=== PATIENT | female | born 1990 | race Caucasian/White ===

== ENCOUNTER 2017-04-05 15:54 | Inpatient (IN) | payer BC, OTHER ==
[~2017-04-05] VITALS: Ht 154.9 cm; Wt 39.9 kg
[2017-04-05] MEDS ORDERED: IBUPROFEN 400 MG TABLET PO PRN (18:45)
[2017-04-05] MEDS ORDERED: ONDANSETRON 4 MG/2 ML VIAL IM PRN (18:45)
[2017-04-05] MEDS ORDERED: ONDANSETRON ODT 4 MG TAB.RAPDIS SL PRN (18:45)
[2017-04-05] MEDS ORDERED: MAG HYDROX/AL HYDROX/SIMETH 30 ML LIQUID UDC PO PRN (18:45)
[2017-04-05] MEDS ORDERED: DICYCLOMINE HCL 20 MG TABLET PO PRN (18:45)
[2017-04-05] MEDS ORDERED: LOPERAMIDE HCL 2 MG CAPSULE PO PRN ×2 (18:45)
[2017-04-05] MEDS ORDERED: TRAZODONE 50 MG TABLET PO PRN (18:45)
[2017-04-05] MEDS ORDERED: LORAZEPAM 2 MG/1 ML VIAL IM PRN (18:45)
[2017-04-05] MEDS ORDERED: MIRALAX 17 GM POWD.PACK PO PRN (18:45)
[2017-04-05] MEDS ORDERED: CLONIDINE HCL 0.1 MG TABLET PO PRN (18:45)
[2017-04-05] MEDS ORDERED: ACETAMINOPHEN 325 MG TABLET PO PRN (18:45)
[2017-04-05] MEDS ORDERED: LORAZEPAM 1 MG TABLET PO PRN ×2 (18:45)
--- NOTE | 2017-04-05 19:55 | NUR ---
PREADMISSION NOTE: 26 year old, very thin but overall healthy-looking caucasion female met in [facility] Intake room. Patient greeted and introduction given to her. Patient responds with delayed, slightly slurred, " Hi". Patient states that she has just arrived from a 6 hour flight from [place], [place], but she is oriented to person, place, day, date and her personal situation. Reoriented to time. Patient denies any pain and states that she has no allergies to anything and has never had a seizure. Patient states that she has a history of anxiety, depression, ADHD and PTSD, though she has not been taking any medication for these stated conditions on any regular basis. Explanations given to patient concerning[facility] and medication reconciliation policies concerning any medications brought with her. Patient states, " Oh, okay". Vital signs are: 97-84-20 110/68, O2 Sat 98%. Patient states that she is here at [facility] for Methamphetamine and Xanax withdrawal.
--- NOTE | 2017-04-05 20:20 | NUR ---
ADMISSION NOTE: Patient admitted ambulatory to room # 315, after [facility] by staff [employer] TECHNICIAN. Gait is steady. Patient's color is tannish-pink and her skin is clean, warm and intact. Patient has pierced naval with multiple round studs in place. Patient has a few various, flat, reddened small areas on her torso, back and right shoulder and she states that this areas have appeared for the past 8 years, when the weather is hot and humid where she lives in [place]. She states that she takes medication "sometimes" for this condition and that she thinks that this skin condition is a "seasonal fungus of some kind". Patient is 5 feet, 1 inch and she weighs 88 lbs. Patient states that she has lost weight since wintertime and she eats when she wants to, however she denies any eating disorder. Patient states that she has no current PCP, though she does have a psychiatrist, she is unable to name just now. Patient states that she has been in detox/rehab facilities before: (1) [facility] for 3 separate admissions, 20 days each time (2) 2009 [facility] in [place], for 29 days (3) [facility], for 30 days. Patient states that she can't recall any other facilities at this time. Patient states that she feels like being here in [place] for her detox will be more successful, since she is far away from triggers in her hometown of [place]. Patient's longest period of sobriety was for 2 and 1/2 years, from 2013 to 2016 plus. Patient is admitted for: (1)daily Methamphetamine use, 1/2 to 1 gram smoked. Last use was on 04/05/17 AM, 1 gram smoked. Patient has been using this drug at this rate for the past 8 months, though she has been using Meth on/off since age 18. (2)daily Xanax use, 4 to 8 bars (1 bar=2 mg), Oral. Last use was on 04/05/17 AM, 16 mg Oral. Patient has been using this drug at this rate for "the past few months", though she has been using Xanax, on/off since age 17. Patient is overall cooperative verbally appropriate during admit process, but she is drowsy with delayed, sometimes slurred speech expressed. Patient has to be frequently prompted to answer questions and she nods off at times and questions must frequently be repeated and explained to her. Patient states, " Oh, I guess I must be tired" Model snack taken along with juice with no gastric issue. Vital signs are: 97.4-87-16 106/66, O2 Sat 99%, COWS 4. Patient oriented to her room and nurse call light. Bed is locked and in lowest position, bed rails are up X 2 and call light within patient's easy reach.
[2017-04-05 20:32] LABS: *URINE HCG, QUAL NEGATIVE (NEGATIVE)
[2017-04-05 20:33] LABS: BASOPHILS # (AUTO) 0.1 K/uL (0.0-8.0); BASOPHILS % (AUTO) 1.1 % (0.0-2.0); EOSINOPHILS # (AUTO) 0.1 K/uL (0.0-0.7); EOSINOPHILS % (AUTO) 1.9 % (0.0-7.0); HEMATOCRIT 41.5 % (37-47); HEMOGLOBIN 13.7 G/DL (12.0-16.0); LYMPHOCYTES # (AUTO) 3.4 K/UL (0.8-4.8); LYMPHOCYTES % (AUTO) 54.2 % (20.5-51.5); MEAN CORPUSCULAR HGB CONC 33 g/dL (32.0-37.0); MEAN CORPUSCULAR VOLUME 88.1 FL (81.0-99.0); MONOCYTES # (AUTO) 0.7 K/UL (0.1-1.30); MONOCYTES % (AUTO) 11.9 % (0.0-11.0); NEUTROPHILS # (AUTO) 1.9 K/UL (1.8-8.9); NEUTROPHILS % (AUTO) 30.9 % (38.5-71.5); PLATELET COUNT (AUTO) 309 K/UL (150-450); RED BLOOD CELL COUNT(AUTO) 4.71 MIL/UL (4.2-5.4); WHITE BLOOD COUNT (AUTO) 6.2 K/UL (4.0-11.2)
[2017-04-05 20:34] LABS: ALANINE AMINOTRANSFERASE 21 U/L (14-59); ALKALINE PHOSPHATASE 49 U/L (50-136); ASPARTATE AMINOTRANSFERASE 14 U/L (15-37); BILIRUBIN,TOTAL 1.2 mg/dL (0.2-1.0); CARBON DIOXIDE 31 mmol/L (21-32); CHLORIDE 101 mmol/L (98-107); CREATININE 1.1 mg/dL (0.6-1.3); GLUCOSE 87 mg/dL (74-106); MAGNESIUM 2.2 mg/dL (1.8-2.4); POTASSIUM 3.6 mmol/L (3.5-5.1); TOTAL PROTEIN, SERUM 8.2 g/dL (6.4-8.2); UREA NITROGEN, BLOOD 22 mg/dL (7-18)
[2017-04-05 20:53] LABS: ETHANOL < 3 MG/DL (0-0)
[2017-04-05] MEDS ORDERED: LORAZEPAM 1 MG TABLET PO ONE (21:00)
[2017-04-05 21:05] LABS: *AMPHETAMINE, URINE POSITIVE (NEGATIVE); *BARBITURATE, URINE NEGATIVE (NEGATIVE); *CANNABINOID, URINE NEGATIVE (NEGATIVE); *COCCAINE, URINE NEGATIVE (NEGATIVE); *OPIATE, URINE NEGATIVE (NEGATIVE); *PHENCYCLIDINE SCREEN,URINE NEGATIVE (NEGATIVE)
[2017-04-05] MEDS: GABAPENTIN 300 MG CAPSULE PO SCH (21:26)
[2017-04-06] MEDS ORDERED: PREN1TAB81 PO (00:29)
[2017-04-06] MEDS ORDERED: PRO (00:29)
[2017-04-06] MEDS ORDERED: TRAZ-144 PO (00:29)
[2017-04-06] MEDS ORDERED: ALPR0.5T8 PO (00:29)
[2017-04-06] MEDS ORDERED: LACT1CAP66 PO (00:29)
[2017-04-06] MEDS ORDERED: [UNRECOGNIZED DRUG - OTHER] (00:29)
[2017-04-06] MEDS ORDERED: ONDA4TAB11 PO (00:29)
[2017-04-06] MEDS ORDERED: ACET-2605 PO (00:29)
[2017-04-06] MEDS ORDERED: CARB15DR2 OP (00:29)
[2017-04-06] MEDS ORDERED: CLIN50GE7 TP (00:29)
[2017-04-06] MEDS ORDERED: MUPI22OI2 (00:29)
--- NOTE | 2017-04-06 06:30 | NUR ---
0630 Patient slept a total of 7 hours, and she had 1 void and no stools. Total intake was 500 ml p.o. No Prn medications given. V/S are stable and she is afebrile. Last COWS 1 at 0400. Patient is presently sleeping comfortably in stable condition with eyes closed and respirations quiet, even, unlabored at 12. Addendum: 04/06/17 at 0736 by CARL GHOTRA RN Correction: CIWA assessment done and not COWS. CIWA on admission 4, CIWA at 0000 was 2 and last CIWA at 0400 was 1.
--- NOTE | 2017-04-06 08:00 | NUR ---
START OF SHIFT Rcvd endorsement from ongoing nurse, client is in room, a/o x4, she presents with depressed mood, flat affect, and flushed face. Flat, reddened small areas on her torso, back and right shoulder, client states no itchiness or discomfort. She states, "I am not sure I can do this, I feek horrible." she reports restless legs, sweat, cold/chills and no appetite. Educate client on sign and symptoms of withdrawal and medication available to manage it. Encouraged client to increase fluid intake to facilitate detox. Encourage client to attend group therapy for skills to maintain sobriety. Client is a 26 yo female admitted for withdrawal from alprazolam, last used 04/05/17 in the morning unknown amount. She is on 5 day Ativan taper, first dose today @ 0900. Last CIWA 1 @ 0400. She reports NKA, full code, regular diet. She had an uneventful night, slept for 7 hour. Client denies a history of withdrawal-induced seizure. She is on seizure precautions. Call light within reach. Side rails up x2/padded, bed locked and in low position.
[2017-04-06 08:07] VITALS: BP 104/71
[2017-04-06] MEDS: MULTIVITAMINS,THERAPEUTIC TABLET PO SCH (08:35)
[2017-04-06] MEDS: GABAPENTIN 300 MG CAPSULE PO SCH ×2 (08:35→20:45)
[2017-04-06] MEDS: LORAZEPAM 1 MG TABLET PO SCH ×5 (08:37→20:45)
[2017-04-06] MEDS ORDERED: TUBERCULIN,PURIF.PROT.DERIV. 5 TU/0.1 ML TEST ID ONE (09:00)
[2017-04-06] MEDS: BOOST PLUS 237 ML LIQUID (RICH CHOCOLATE) PO SCH ×2 (12:45→16:23)
[2017-04-06 12:55] VITALS: BP 126/89
--- NOTE | 2017-04-06 16:35 | NUR ---
Unable to assess CIWA, client too sedated, C.N. notified.
--- NOTE | 2017-04-06 16:40 | NUR ---
Ativan 2mg taper held, client is too sedated, Dr. Dickson notified, NNO at this time.
[2017-04-06 16:55] VITALS: BP 103/73
[2017-04-06] MEDS ORDERED: TRAZODONE 50 MG TABLET PO SCH (18:00)
--- NOTE | 2017-04-06 19:24 | NUR ---
END OF SHIFT Client is a 26 yo female admitted withdrawal from alprazolam. Client continues on Ativan taper, (day 1) . Ativan 2mg dose held, client was too sedated, Dr. Dickson notified. Client was not compliant with group therapy d/t withdrawal symptoms. Adequate PO intake, void x 3. Safety measures in place, call light within reach, side rails up x2/padded, bed locked and in low position. Endorsed to incoming nurse.
--- NOTE | 2017-04-06 19:30 | NUR ---
Received patient in bed, awake, alert and oriented times 3. Reoriented to reasons for hospitalization. Speech is clear, soft and and able to make known of her needs. patient is isolative to her room and no interaction with peers. Behavior; reserved, calm and cooperative with prompts. Encouraged patient to express herself. Denies SI/HI/AVH. Will continue to monitor behavior and medication effectiveness throughout shift.
[2017-04-06 20:00] VITALS: BP 110/71
[2017-04-06 21:47] VITALS: BP 110/71
--- NOTE | 2017-04-07 00:29 | NUR ---
Patient asleep. Respiration even and unlabored. No signs of distress. Unable to assess COWS at this time. Addendum: 04/07/17 at 0035 by BERTHA HARTMAN RN Correction to previous note. Unable to assess patient CIWA at this time. Addendum: 04/07/17 at 0035 by BERTHA HARTMAN RN Amended: Links added.
[2017-04-07 00:35] VITALS: BP 108/69
[2017-04-07 05:06] VITALS: BP 105/60
--- NOTE | 2017-04-07 06:24 | NUR ---
End of shift notes: Patient remained calm and cooperative with care. Alert and oriented x4. Compliant with plan of care and all unit rules. Vital monitored and charted accordingly. Vital signs WNL. No adverse reaction to medication noted at this time. However, patient reported being tired and fatigue. CIWA is 4 @0400. Patient slept 11 hours. Respiration even and unlabored. No signs of distress.
--- NOTE | 2017-04-07 07:53 | NUR ---
START OF SHIFT Rcvd endorsement from ongoing nurse, client is in room, a/o x4, she stated "Ativan medication makes me really groggy and tired, I don't know if I want to take it anymore." she reports restless legs, abdominal spasms, and decreased appetite, client has an order for Boost supplement BID. She presents with depressed mood, flat affect, flushed face, and moist skin. Educate client on risk/benefits of Ativan taper, reinforcement needed. Encouraged client to increase fluid intake to facilitate detox. Encourage client to attend group therapy for skills to maintain sobriety. Client is a 26 yo female admitted for withdrawal from alprazolam, last used 04/05/17 in the morning unknown amount. She is on 5 day Ativan taper (day 2). Last CIWA 14 @ 0400. She reports NKA, full code, regular diet. She had an uneventful night, slept for 11 hour. Client denies a history of withdrawal-induced seizure. She is on seizure precautions. Call light within reach. Side rails up x2/padded, bed locked and in low position.
[2017-04-07 08:03] VITALS: BP 98/58
[2017-04-07] MEDS: MULTIVITAMINS,THERAPEUTIC TABLET PO SCH (08:43)
[2017-04-07] MEDS: BOOST PLUS 237 ML LIQUID (RICH CHOCOLATE) PO SCH ×2 (08:43→18:00)
[2017-04-07] MEDS: GABAPENTIN 300 MG CAPSULE PO SCH ×3 (08:43→21:36)
--- NOTE | 2017-04-07 08:43 | NUR ---
Client refused Neurontin 300mg stating "I makes me sleepy and I feel really tired."
--- NOTE | 2017-04-07 08:52 | NUR ---
PRN Tylenol 650mg for headache 02/02, client states "It feels tight all around." Encouraged to increase fluid intake as tolerated, she verbalized understanding. Call light within reach. Will continue to monitor
[2017-04-07] MEDS ORDERED: LORAZEPAM 1 MG TABLET PO SCH (09:00)
--- NOTE | 2017-04-07 09:52 | NUR ---
Reassessment PRN Tylenol 650mg, client reports relief from SALMERON 0/10,
[2017-04-07 10:07] LABS: HEPATITIS B SURFACE AG Negative (Negative)
[2017-04-07 12:00] VITALS: BP 119/71
[2017-04-07] MEDS: LORAZEPAM 1 MG TABLET PO SCH ×3 (15:40→21:36)
[2017-04-07 16:00] VITALS: BP 124/74
--- NOTE | 2017-04-07 19:00 | NUR ---
END OF SHIFT Client is a 26 yo female admitted withdrawal from alprazolam. Client continues on modified Ativan taper, (day 2). Client was compliant with 2/3 of group therapy. Adequate PO intake. PRN Tylenol 650mg for SALMERON, noted effective. Safety measures in place, call light within reach, side rails up x2/padded, bed locked and in low position. Endorsed to incoming nurse.
[2017-04-07 20:00] VITALS: BP 115/68
--- NOTE | 2017-04-07 20:00 | NUR ---
START OF SHIFT NOTE PATIENT IN THE ROOM RESTING. UPON GREETING , PATIENT STATES SHE'S TIRED. DENIES ANY PAIN. NO N/V. NOTE IRRITATED AND SLIGHTLY AGITATED. RECEIVED REPORT FROM DAY SHIFT NURSE. PATIENT IS A 26 YEAR OLD FEMALE, ADMITTED FOR XANAX AND METH DEPENDENCE. PATIENT IS ON 2ND DAY OF HER MODIFIED 5 DAY ATIVAN TAPER. UPON ADMISSION, PATIENT REPORTS USING METH (SMOKES) 1/2 -1 GRAM SINCE AGE 18 ON/OFF AND XANAX 4-8 BARS ON/OFF SINCE AGE 17 . SKIN INTACT. LAST CIWA 7.ON FALL PRECAUTION. SAFETY MEASURES IN PLACE. CALL LIGHT IN REACH. WILL CONTINUE TO MONITOR
--- NOTE | 2017-04-07 21:00 | NUR ---
REFUSED MEDS PATIENT REFUSED ATIVAN AND NEURONTIN AT 2100. EXPLAINED RISKS BENEFITS BUT STILL REFUSED. CIWA 2. CHICHI KUMAR AWARE. WILL CONTINUE TO MONITOR.
[2017-04-08] VITALS: BP 118/78
--- NOTE | 2017-04-08 04:00 | NUR ---
CIWA/VS PATIENT ASLEEP. CIWA UNABLE TO ASSESS. RESPIRATION EVEN AND UNLABORED. SAFETY MEASURES IN PLACE. CALL LIGHT IN REACH. WILL CONTINUE TO MONITOR
--- NOTE | 2017-04-08 07:06 | NUR ---
END OF SHIFT NOTE PATIENT HAD UNEVENTFUL EVENT . PATIENT STABLE. PATIENT IS ON 5 DAY MODIFIED TAPER FOR XANAX AND METH DEPENDENCE. UPON ADMISSION, PATIENT REPORTS USING METH (SMOKES) 1/2 -1 GRAM SINCE AGE 18 ON/OFF AND XANAX 4-8 BARS ON/OFF SINCE AGE 17 . PATIENT REFUSED HER ATIVAN AND GABAPENTIN AT 2100, EXPLAINED RISKS/BENEFITS BUT STILL REFUSED. PATIENT WOULD LIKE TO SPEAK TO THE DOCTOR. PATIENT DID NOT REQUIRE ANY PRN MEDICATIONS. SKIN INTACT.ON FALL PRECAUTION. SAFETY MEASURES IN PLACE. CALL LIGHT IN REACH. WILL CONTINUE TO MONITOR. SLEPT 10 HOURS. FLUID INTAKE 500 ML. VOIDED X 0. NO BM. LAST CIWA 1.
--- NOTE | 2017-04-08 07:45 | NUR ---
START OF SHIFT NOTE Received report from night nurse, 26 year old female admitted for BENZO dependence. Pt continues with modified Ativan taper. Per endorsement pt refused her scheduled Ativan/ Gabapentin, last CIWA-1, Slept for 10 hours, no PRN received. Received pt alert awake oriented x4 in stable condition. Breathing normal no SOB noted, Skin warm and dry to touch. Pt educated with plan of the day and medication regimen with good verbal understanding. All safety measures in place, Call light within reach. Will cont to monitor.
[2017-04-08 08:00] VITALS: BP 117/68
[2017-04-08] MEDS: LORAZEPAM 1 MG TABLET PO SCH ×3 (09:00→21:42)
[2017-04-08] MEDS ORDERED: LORAZEPAM 1 MG TABLET PO SCH (09:00)
[2017-04-08] MEDS: GABAPENTIN 300 MG CAPSULE PO SCH ×2 (09:00→21:42)
[2017-04-08] MEDS: MULTIVITAMINS,THERAPEUTIC TABLET PO SCH (09:00)
[2017-04-08] MEDS: BOOST PLUS 237 ML LIQUID (RICH CHOCOLATE) PO SCH ×2 (09:02→16:48)
--- NOTE | 2017-04-08 10:59 | NUR ---
Therapist prompted client about group times. Client stated she would try to attend all groups today.
[2017-04-08 12:00] VITALS: BP 116/81
[2017-04-08 16:00] VITALS: BP 118/80
--- NOTE | 2017-04-08 19:15 | NUR ---
END OF SHIFT NOTE Pt cont with Ativan taper tolerating well. Pt did not receive any PRN medication during shift. Vital signs remained WNL. Pt able to consumed all her meals well. Encourage Po fluids as tolerated. Pt remained compliant with plan of care. Last CIWA score 3. Pt attended groups and activities. All needs attended. Safety measures in place, Call light within reach. Pt endorsed to night nurse in stable condition.
[2017-04-08 20:00] VITALS: BP 121/85
--- NOTE | 2017-04-08 20:00 | NUR ---
Start of Shift Patient is a 26-year old, female, admitted for Benzo dependence. Pt continues with a 5-day Ativan taper, started on 04/06/2017. Pt tolerates taper well, with no ASE. Pt with NKA, is Full Code and on Regular Diet. Pt is AAOx4, with slight anxiety noted. No SOB observed. Pt is ambulatory with steady gait. No open skin noted. Pt is stable. Fall, universal and safety prec in place. Call light within reach. Latest CIWA=2. Will continue to monitor.
[2017-04-08] MEDS: PRAZOSIN HCL 1 MG CAPSULE PO SCH (21:42)
[2017-04-09] VITALS (7 sets, daily range): BP systolic 100–120; BP diastolic 58–81
--- NOTE | 2017-04-09 07:11 | NUR ---
End of Shift Patient is a 26-year old, female, admitted for Benzo dependence. Pt continues with a 5-day Ativan taper, started on 04/06/2017. Pt tolerates taper well, with no ASE. Pt with NKA, is Full Code and on Regular Diet. Pt is AAOx4, with slight anxiety noted. No SOB observed. Pt is ambulatory with steady gait. No open skin noted. Pt is stable. Fall, universal and safety prec in place. Call light within reach. Latest CIWA=3, slept for 11 hours. Endorsed to AM shift nurse for continuity of care.
--- NOTE | 2017-04-09 07:30 | NUR ---
START OF SHIFT NOTE Received report from night nurse, 26 year old female admitted for BENZO dependence. Pt continues with modified Ativan taper. Per endorsement last CIWA-3, Slept for 11 hours no PRN received. Received pt alert awake oriented x4 in stable condition. Breathing normal no SOB noted, Skin warm and dry to touch. Pt educated with plan of the day and medication regimen with good verbal understanding. All safety measures in place, Call light within reach. Will cont to monitor.
[2017-04-09] MEDS: MULTIVITAMINS,THERAPEUTIC TABLET PO SCH (08:48)
[2017-04-09] MEDS: BOOST PLUS 237 ML LIQUID (RICH CHOCOLATE) PO SCH ×2 (08:48→17:22)
[2017-04-09] MEDS: GABAPENTIN 300 MG CAPSULE PO SCH (08:49)
[2017-04-09] MEDS ORDERED: LORAZEPAM 1 MG TABLET PO SCH ×2 (09:00)
[2017-04-09] MEDS ORDERED: IBUP-1953 PO (15:15)
[2017-04-09] MEDS ORDERED: HYDR25CA PO (15:15)
[2017-04-09] MEDS ORDERED: TRAZ-144 PO (15:15)
[2017-04-09] MEDS ORDERED: PRAZ1CAP2 PO (15:15)
--- NOTE | 2017-04-09 19:03 | NUR ---
END OF SHIFT NOTE Pt is alert oriented x4. Pt completed her Ativan taper tolerated well. Pt did not receive any PRN medication during shift. Vital signs remained WNL. Pt able to consumed all her meals well. Encourage Po fluids as tolerated. Pt remained compliant with plan of care. Last CIWA score 1. Pt attended groups and activities. Pt scheduled for discharge in AM, urine drug screen completed and placed in the chart. All needs attended. Safety measures in place, Call light within reach. Pt endorsed to night nurse in stable condition.
[2017-04-09 19:15] LABS: *AMPHETAMINE, URINE NEGATIVE (NEGATIVE); *BARBITURATE, URINE NEGATIVE (NEGATIVE); *CANNABINOID, URINE NEGATIVE (NEGATIVE); *COCCAINE, URINE NEGATIVE (NEGATIVE); *OPIATE, URINE NEGATIVE (NEGATIVE); *PHENCYCLIDINE SCREEN,URINE NEGATIVE (NEGATIVE)
--- NOTE | 2017-04-09 19:15 | NUR ---
START OF SHIFT Received 26 year old female patient admitted on 04/05/17 for Xanax and Methamphetamine dependency. Pt is full code with NKA. She reports a PMHx of anxiety, depression, PTSD and ADHD. She reports using Xanax (PO) 4-8 bars a day since age 17. Last dose as 8 mg on 04/05/17. She completed her 5 day Ativan taper and tolerated well. She is scheduled to be DC tomorrow. Per endorsement, pt did not receive PRN medications. Pt is alert and oriented x4, breathing is even and unlabored. Safety measures in place. Will continue to monitor.
[2017-04-09] MEDS: PRAZOSIN HCL 1 MG CAPSULE PO SCH (21:03)
[2017-04-10] VITALS: BP 107/60
--- NOTE | 2017-04-10 | NUR ---
CIWA DEFERRED CIWA deferred d/t pt lying in bed with eyes closed and is noted to be asleep. Respirations 16, breathing is even and unlabored, safety measures in place. Will continue to monitor.
[2017-04-10 04:00] VITALS: BP 110/62
--- NOTE | 2017-04-10 04:00 | NUR ---
CIWA DEFERRED CIWA deferred d/t pt lying in bed with eyes closed noted to be asleep. Respirations 16, breathing is even and unlabored, safety measures in place. Will monitor.
--- NOTE | 2017-04-10 07:07 | NUR ---
END OF SHIFT Pt is a 26 year old female patient admitted on 04/05/17 for Xanax and Methamphetamine dependency. Pt is full code with NKA. She reports a PMHx of anxiety, depression, PTSD and ADHD. She is scheduled to be DC today to [facility]. Pt did not receive or request PRN medications. She slept a total of 8 hrs, Intake: 500mL, Void: x1, BM:0, CIWA:1. Pt remains alert and oriented x4, breathing is even and unlabored. Safety measures in place. Endorsed to oncoming shift.
--- NOTE | 2017-04-10 07:58 | NUR ---
START OF SHIFT Patient scheduled for discharge this shift. patient completed ordered taper. No PRNs given throughout the night. She slept 8 hours. patient verbalizes readiness to discharge to [facility]. COWS 3 CIWA 1 per naturalist. vitals stable. will monitor closely until discharge.
[2017-04-10 08:00] VITALS: BP 101/68
[2017-04-10] MEDS: BOOST PLUS 237 ML LIQUID (RICH CHOCOLATE) PO SCH (08:17)
[2017-04-10] MEDS: MULTIVITAMINS,THERAPEUTIC TABLET PO SCH (08:17)
[2017-04-10] MEDS ORDERED: LORAZEPAM 1 MG TABLET PO SCH ×2 (09:00)
--- NOTE | 2017-04-10 09:55 | NUR ---
DISCHARGE NOTE Patient is in stable condition, AOx4. Vitals stable. Skin intact. Pt denies suicidal or homicidal ideations. All discharge paperwork completed, dated and signed. patient educated about discharge instructions, what to do after discharge and when to contact MD. Pt verbalized understanding of all info given. Patient's Last COWS 1 CIWA 0. Patient was discharged from [facility] on 04/10/17 at 0905 and assisted to lobby with PUBLIC SERVICE REPRESENTATIVE where she was picked up by [facility]. Patient left building with all belongings, medications, and rx. md has been notified of pt discharge.
== END 2017-04-10 09:05 | disposition home or self-care (01) | DRG 895 ==
LOC: SRC 18:30
PROVIDERS: ADMIT Internal Medicine; ATTEND Internal Medicine
PROC: HZ2ZZZZ Detoxification Services for Substance Abuse Treatment (ICD-10-PCS; principal; 2017-04-05)
PROC: HZ41ZZZ Group Counseling for Substance Abuse Treatment, Behavioral (ICD-10-PCS; 2017-04-06)
PROC: HZ31ZZZ Individual Counseling for Substance Abuse Treatment, Behavioral (ICD-10-PCS; 2017-04-08)
DX: F13.230 Sedative, hypnotic or anxiolytic dependence with withdrawal, uncomplicated (principal); E86.0 Dehydration; F41.1 Generalized anxiety disorder; F11.21 Opioid dependence, in remission; F15.23 Other stimulant dependence with withdrawal; Z82.49 Family history of ischemic heart disease and other diseases of the circulatory system; Z81.1 Family history of alcohol abuse and dependence; G47.00 Insomnia, unspecified; F10.10 Alcohol abuse, uncomplicated; Y90.9 Presence of alcohol in blood, level not specified; F63.3 Trichotillomania; F17.210 Nicotine dependence, cigarettes, uncomplicated; R79.89 Other specified abnormal findings of blood chemistry; F51.4 Sleep terrors [night terrors]
CPT/HCPCS: 36415; 70030-TC; 80307; 80324; 80346; 83735; 84703; 85025; 86580; 86592; 86705; 86803; 87340; 87806; A4663; G0480